=== PATIENT | female | born 1960 | race Caucasian/White ===

== ENCOUNTER 2018-08-25 13:46 | Emergency (ER) | payer MEDICAID ==
[~2018-08-25] VITALS: Ht 180.3 cm; Wt 147.9 kg
[2018-08-25 13:54] VITALS: BP 113/66
--- NOTE | 2018-08-25 14:27 | NUR ---
Patient discharged to home in stable condition. Written and verbal after care instructions given. Patient verbalizes understanding of instruction.
== END 2018-08-25 14:28 | disposition home or self-care (01) ==
LOC: ER 13:50
DX: S00.12XA Contusion of left eyelid and periocular area, initial encounter (principal); S40.012A Contusion of left shoulder, initial encounter; Z96.641 Presence of right artificial hip joint; Z95.818 Presence of other cardiac implants and grafts; W01.198A Fall on same level from slipping, tripping and stumbling with subsequent striking against other object, initial encounter; Y93.89 Activity, other specified; Y92.89 Other specified places as the place of occurrence of the external cause; Y99.8 Other external cause status
CPT/HCPCS: Z7502

== ENCOUNTER 2018-08-28 16:17 | Emergency (ER) | payer MEDICAID ==
[~2018-08-28] VITALS: Ht 177.8 cm; Wt 133.8 kg
[2018-08-28 16:17] VITALS: BP 134/72
[2018-08-28] MEDS ORDERED: KETOROLAC TROMETHAMINE INJ 60 MG/2 ML VIAL IM ONE ×2 (17:17→17:30)
[2018-08-28] MEDS ORDERED: CYCLOBENZAPRINE 10 MG TABLET ONE (17:17)
[2018-08-28] MEDS ORDERED: DEXAMETHASONE SOD PHOSPHATE 4 MG/ML VIAL IM ONE (17:30)
[2018-08-28] MEDS ORDERED: CYCLOBENZAPRINE 10 MG TABLET PO ONE (17:30)
--- NOTE | 2018-08-28 18:49 | NUR ---
CALLED MAY TO PICK PT UP, HE STATED THAT HE COULD PICK HER UP IN 30-40MIN
[2018-08-28] MEDS ORDERED: MORPHINE SULFATE INJ 4 MG/ML DISP.SYRIN ONE (21:40)
[2018-08-28] MEDS ORDERED: ONDANSETRON 4 MG TAB.RAPDIS ONE (21:40)
[2018-08-28] MEDS ORDERED: ONDANSETRON 4 MG TAB.RAPDIS SL ONE (22:00)
[2018-08-28] MEDS ORDERED: MORPHINE SULFATE INJ 2 MG/ML DISP.SYRIN IM ONE (22:00)
== END 2018-08-28 21:16 | disposition home or self-care (01) ==
LOC: ER 16:22
DX: M54.5 Low back pain (principal); I10 Essential (primary) hypertension; Z96.641 Presence of right artificial hip joint; Z88.0 Allergy status to penicillin; Z95.818 Presence of other cardiac implants and grafts; W01.0XXA Fall on same level from slipping, tripping and stumbling without subsequent striking against object, initial encounter; Y93.89 Activity, other specified; Y92.89 Other specified places as the place of occurrence of the external cause; Y99.8 Other external cause status
CPT/HCPCS: 96372 ×2; 99283; J1885; J2270; Q0162